=== PATIENT | female | born 1960 | race Caucasian/White ===

== ENCOUNTER 2017-07-22 13:07 | Emergency (ER) ==
[2017-07-22 13:26] VITALS: BP 148/93; TEMP 98.3; BMI 22.4
--- NOTE | 2017-07-22 14:38 | CT ---
EXAM: CT of the head without contrast History: Dizziness. Comparison: Head CT 02/01/2010 Technique: Multiplanar CT images through the head were obtained without the administration of IV con trast Findings: The visualized paranasal sinuses and mastoid air cells are clear in general. No acute anastasia varial abnormalities. Intracranially the ventricular and cisternal spaces are normal in size, shape and configuration for a patient of this age. No dominant mass or midline shift. No hydrocephalous. No acute intracranial hemorrhage or abnormal extraaxial fluid collections. Impression: No acute intracranial process.
--- NOTE | 2017-07-22 14:42 | CT ---
EXAM: CT of the lumbar spine without contrast History: Lower back pain. Technique: Multiplanar CT images through the lumbar spine were obtained without the administration o f IV contrast Findings: No acute fracture or subluxation of the lumbar spine. Mild to moderate disc space narrowi ng at L2-L3 with endplate sclerosis and osteophyte formation. Mild disc space narrowing seen elsewhe re. T12-L1: No significant disc bulge, central canal stenosis or neural foraminal narrowing. L1-L2: No significant disc bulge, central canal stenosis or neural foraminal narrowing. L2-L3: Small to modest paracentral disc protrusion effacing anterior thecal sac with no significant central canal stenosis. Mild to moderate bilateral bony neural foraminal narrowing secondary to liga mentous and facet hypertrophy. L3-L4: No significant disc bulge or central canal stenosis. Mild bilateral bony neural foraminal na rrowing secondary to ligamentous and facet hypertrophy. L4-L5: The left paracentral disc protrusion effacing anterior thecal sac with no significant central canal stenosis. Severe left and moderate right neural foraminal narrowing secondary to ligamentous and facet hypertrophy and disc material on the left. There may be compromise of the left exiting nerv e root. L5-S1: No significant disc bulge or central canal stenosis. Moderate left and mild right bony neura l foraminal narrowing secondary to ligamentous and facet hypertrophy. Impression: 1. No acute osseous abnormality of the lumbar spine. 2. Mild to moderate degenerative disc disease at L2-L3. 3. Level by level analysis as detailed above and most significant and L4-L5 with severe left-sided n eural foraminal narrowing and possible compromise of the exiting left sided nerve root.
--- NOTE | 2017-07-22 14:50 | DI ---
EXAM: PA and lateral views of the chest HISTORY: Cough. COMPARISON: None FINDINGS: The cardiomediastinal silhouette is normal. There is no pneumothorax or pleural effusion. There is no consolidation, nodule or mass. The osseous structures are unremarkable. IMPRESSION: No acute cardiopulmonary process
--- NOTE | 2017-07-22 15:07 | ED.PDOC ---
General ED Provider: Dr. TED KEENAN Chief Complaint: Dizziness Stated Complaint: DIZZINESS Time Seen by Physician: 13:10 (SEEN WITH SHANE AT ALL TIMES) Mode of Arrival: Walk-In Information Source: Patient, Family Exam Limitations: No limitations Referred to ED by: Other (NO NEURO DEFICITS ON ARRIVAL ) Nursing and Triage Documentation Reviewed and Agree: Yes (NO TRAUMA REPORTED ) Reviewed sepsis parameters & appropriate labs ordered?: Yes System Inflammatory Response Syndrome: Not Applicable Sepsis Protocol: For patient's 13 years and over: Temp is 96.8 and below OR 101 and greater Pulse >90 BPM Resp >20/minute Acutely Altered Mental Status Are patient's symptoms suggestive of a new infection, such as: -Pneumonia -Skin, Soft Tissue -Endocarditis -UTI -Bone, Joint Infection -Implantable Device -Acute Abdominal Infection -Wound Infection -Meningitis -Blood Stream Catheter Infection -Unknown System Inflammatory Response Syndrome: Not Applicable Neurological Complaint Exam - Dizziness Complaint/Exam Last Known Well: 2 DAYS Onset: Gradual Duration: 2 DAYS Symptoms Are: Resolved Timing: Intermittent Episodes Lasting: Hours Initial Severity: Mild Current Severity: None Character: Reports: Dizzy Aggravating: Reports: None Alleviating: Reports: None Associated Signs and Symptoms: Denies: Nausea, Vomiting, Diaphoresis, Tinnitus, Chest pain, Short of air, Palpitations, Unsteady gait, GI blood loss, Visual changes, Decreased oral intake, Change in medication, Change in diet, OTC meds, Loss of balance Related History: Similar episode Cardiac Risk Factors: Reports: None CVA Risk Factors: Reports: None Related Surgical History: Reports: None JVD Present: No Carotid Bruit Present: No Glascow Coma Scale (see protocol): 15 Nystagmus Present: No Gag Reflex Present: Yes Meningeal Signs Positive: No Focal Weakness: Present: None Focal Sensory Loss: Present: None Gait: Normal [id number]: Normal Findings Romberg Test Positive: No Babinski Sign: Negative Right, Negative Left Heel to Toe Normal: Yes Differential Diagnoses: Dysrhythmia, Metabolic abnormalities, Vasovagal reaction Quality Indicators for Cardiac Chest Pain: EKG in 10min. Quality Indicators for AMI: EKG in 10min. Quality Indicator For Non-Traumatic Chest Pain/Syncope: EKG Performed Review of Systems - Review Of Systems Constitutional: Reports: No symptoms Eyes: Reports: No symptoms Ears, Nose, Mouth, Throat: Reports: No symptoms Respiratory: Reports: No symptoms Cardiac: Reports: No symptoms GI: Reports: No symptoms : Reports: No symptoms Musculoskeletal: Reports: No symptoms Skin: Reports: No symptoms Neurological: Reports: Other (DIZZINESS) Endocrine: Reports: No symptoms Hematologic/Lymphatic: Reports: No symptoms All Other Systems: Reviewed and Negative Past Medical History - Past Medical History Previously Healthy: Yes Endocrine: Reports: None Cardiovascular: Reports: Hypertension Respiratory: Reports: None Hematological: Reports: None Gastrointestinal: Reports: None Genitourinary: Reports: None Neuro/Psych: Reports: Seizure Musculoskeletal: Reports: None Cancer: Reports: None Last Menstrual Period: post menopausal - Surgical History General Surgical History: Reports: None - Family History Family History: Reports: None - Social History Smoking Status: Current every day smoker, Heavy tobacco smoker Hx Substance Use: ([facility]) Alcohol Screening: None Physical Exam - Physical Exam Appearance: Well-appearing, No pain distress, Well-nourished Eyes: KAREN, EOMI, Conjunctiva clear ENT: Ears normal, Nose normal, Oropharynx normal Respiratory: Airway patent, Breath sounds clear, Breath sounds equal, Respirations nonlabored Cardiovascular: RRR, Pulses normal, No rub, No murmur GI/: Soft, Nontender, No masses, Bowel sounds normal, No Organomegaly Musculoskeletal: Normal strength, ROM intact, No edema, No calf tenderness Skin: Warm, Dry, Normal color Neurological: Sensation intact, Motor intact, Reflexes intact, Cranial nerves intact, Alert, Oriented Psychiatric: Affect appropriate, Mood appropriate Interpretation - Radiology Interpretation Radiology Interpretation By: Radiologist Radiology Results: No acute changes Re-Evaluation - Re-Evaluation Time of Re-Evaluation: 15:07 Status: Unchanged Vital Signs Stable: Yes Pain Level: 0 Appearance: NAD Lungs: Clear Skin: Warm and Dry Neuro: Alert and Oriented X3 CV: RRR Critical Care Note - Critical Care Note Total Time (mins): 0 Course - Course Hematology/Chemistry: 07/22/17 14:10 07/22/17 14:10 Orders, Labs, Meds: Lab Review 07/22/17 07/22/17 07/22/17 14:10 14:10 14:10 WBC 7.26 RBC 5.21 Hgb 15.0 Hct 44.4 MCV 85.2 MCH 28.8 MCHC 33.8 RDW Coeff of Roger 13.3 Plt Count 162 Immature Gran % (Auto) 0.1 Neut % (Auto) 50.7 Lymph % (Auto) 40.6 [place] % (Auto) 6.9 Eos % (Auto) 1.0 Baso % (Auto) 0.7 Immature Gran # (Auto) 0.0 Neut # (Auto) 3.7 Lymph # (Auto) 3.0 [place] # (Auto) 0.5 Eos # (Auto) 0.1 Baso # (Auto) 0.1 Sodium 142 Potassium 3.7 Chloride 106 Carbon Dioxide 24 Anion Gap 15.7 BUN 10 Creatinine 0.76 Estimated GFR (MDRD) 79.00 BUN/Creatinine Ratio 13.15 Glucose 80 Calcium 9.9 Total Bilirubin 0.5 AST 20 ALT 22 Alkaline Phosphatase 105 H Total Creatine Kinase 41 Troponin I < 0.0100 Total Protein 7.7 Albumin 3.8 Globulin 3.9 Albumin/Globulin Ratio 0.97 Urine Color Yellow Urine Clarity Clear Urine pH 7.0 Ur Specific [place] 1.020 Urine Protein Negative Urine Glucose (UA) Negative Urine Ketones Negative Urine Blood Trace-intact Urine Nitrite Negative Urine Bilirubin Negative Urine Urobilinogen 0.2 Ur Leukocyte Esterase Negative Urine Microscopic RBC 0-2 Ur Squamous Epith Cells 0-2 Orders Category Date Time Status EKG-(ED ONLY) Stat CARDIO 07/22/17 13:39 Completed BLOOD CULTURE (ED ONLY) Stat LAB 07/22/17 14:10 Received CBC W/ AUTO DIFF Stat LAB 07/22/17 14:10 Completed COMPREHENSIVE METABOLIC PANEL Stat LAB 07/22/17 14:10 Received CREATINE KINASE Stat LAB 07/22/17 14:10 Received TROPONIN I Stat LAB 07/22/17 14:10 Received URINALYSIS C & S IF INDICATED Stat LAB 07/22/17 14:10 Completed CHEST, 2 VIEWS PA & LAT Stat RADS 07/22/17 13:[address] HEAD W/O CONTRAST Stat RADS 07/22/17 13:[address] LUMBAR SPINE W/O CONTRAST Stat RADS 07/22/17 13:49 Completed Vital Signs: Temp Pulse Resp BP Pulse Ox 07/22/17 13:08 98.3 F 85 20 148/93 H 94 L Departure - Departure Time of Disposition: 15:08 (LEFT WITHOUT WAITING FOR INSTRUCTION) Disposition: HOME SELF-CARE Discharge Problem: Dizziness Instructions: Dizziness (ED) Condition: Good Pt referred to PMD for follow-up: Yes IPMP verified?: No Additional Instructions: Please call your Family Physician as soon as possible to schedule a follow-up appointment. Allergies/Adverse Reactions: Allergies No Known Allergies Allergy (Unverified 07/22/17 13:21) Home Medications: Ambulatory Orders Duloxetine HCl [Cymbalta] 60 mg PO DAILY 07/22/17 Gabapentin [Neurontin] 800 mg PO Q8HR 07/22/17 Lamotrigine [Lamictal] 50 mg PO BEDTIME 07/22/17 Lisinopril [Zestril] 20 mg PO DAILY 07/22/17 Oxycodone HCl/Acetaminophen [Percocet 10-325 mg Tablet] 1 each PO BID 07/22/17 Prazosin HCl 1 mg PO BEDTIME 07/22/17 Trazodone HCl [Desyrel] 50 mg PO BEDTIME 07/22/17
== END 2017-07-22 15:19 | disposition home or self-care (01) ==
LOC: ED 13:07
DX: R42 Dizziness and giddiness (principal); I10 Essential (primary) hypertension; F17.210 Nicotine dependence, cigarettes, uncomplicated; Z79.899 Other long term (current) drug therapy
CPT/HCPCS: 36415; 80053; 81001; 82550; 84484; 85025; 87040; 93005; 93010; 99283